=== PATIENT | female | born 1960 | race Caucasian/White ===

== ENCOUNTER 2022-03-02 16:02 | Inpatient (IN) | payer SELFPAY ==
[2022-03-02 17:14] LABS: #Lymphocytes 0.8 thou/uL (1.20-3.40); #Monocytes 0.4 thou/uL (0.11-0.59); #Neutrophils 5.2 thou/uL (1.40-6.50); %Basophils 0.2 % (0.0-1.0); %Eosinophils 0.5 % (0.0-10.0); %Lymphocytes 12.1 % (21.0-51.0); %Neutrophils 81.2 % (42.0-75.0); Hemoglobin 11.5 g/dL (12.0-16.0); Mean Corpuscular HGB CONC 33.5 g/dL (32.0-36.0); Mean Corpuscular Hemoglobin 33.4 pg (27.0-31.0); Mean Corpuscular Volume 99.5 fl (78.0-98.0); Mean Platelet Volume 8.5 fL (7.4-10.4); Platelet Count 120 10x3/uL (130-400); Red Blood Cell (RBC) Count 3.44 mill/uL (4.20-5.40); White Blood Cell (WBC) Count 6.5 10x3/uL (4.8-10.8)
[2022-03-02 17:28] LABS: ALT (SGPT) 27 U/L (8-55); AST (SGOT) 84 U/L (5-34); Albumin 3.7 g/dL (3.5-5.0); Alkaline Phosphatase 129 U/L (40-110); Anion Gap 15 mmol/L (10-20); BUN (Urea Nitrogen) 22 mg/dL (9.8-20.1); Bilirubin, Total 0.9 mg/dL (0.2-1.2); Calc. Creatinine Clearance 0 mL/min (70-130); Calcium 10.1 mg/dL (7.8-10.44); Carbon Dioxide 24 mmol/L (22-29); Chloride 98 mmol/L (98-107); Estimated GFR 97; Globulin 3.3 g/dL (2.4-3.5); Glucose 107 mg/dL (70-105); Potassium 2.7 mmol/L (3.5-5.1); Sodium 134 mmol/L (136-145)
[2022-03-02] MEDS ORDERED: cefTRIAXone\\ROCEPHIN 2 GM VIAL ONE (18:24)
[2022-03-02] MEDS ORDERED: Potassium Chloride 20 MEQ TAB ONE (18:25)
[2022-03-02] MEDS ORDERED: Aspirin Chewable 81 MG TAB ONE (18:59)
[2022-03-02] MEDS ORDERED: Potassium Chloride 40 MEQ in Sodium Chloride 0.9% 250 ML 250 ML IVPB SCH (19:15)
[2022-03-02 19:18] LABS: Magnesium 1.3 mg/dL (1.6-2.6)
[2022-03-02] MEDS ORDERED: Azithromycin 500 MG VIAL ONE (19:23)
[2022-03-02 19:54] LABS: Bacteria/HPF 4+ HPF (None Seen); Bilirubin Negative (Negative); Blood, Urine 2+ (Negative); Clarity Clear (Clear); Glucose, Urine (Dipstick) Normal (Negative); Ketone, Urine Negative (Negative); Leukocyte 500 Leu/uL (Negative); Nitrite Negative (Negative); Protein, Urine (Dipstick) Negative (Neg-Trace); RBC/HPF 0-3 HPF (0-3); Specific Gravity, Urine 1.007 (1.002-1.036); Squamous Epithelial 0-3 HPF (0-3); Urobilinogen Normal mg/dL (Less than 2); WBC/HPF 21-50 HPF (0-3); pH, Urine 6.5 (5.0-9.0)
[2022-03-02] MEDS ORDERED: Magnesium 2 GM/50 ML(in water) 2 GM in Premix Bag 1 BAG IVPB SCH (20:00)
[2022-03-02 22:08] LABS: Cardiac Risk 4.9 (Less than 4.5)
[2022-03-02 23:50] VITALS: BMI 19.9
[2022-03-03] MEDS: Atorvastatin Calcium 40 MG TAB PO SCH ×2 (00:19→20:23)
[2022-03-03] MEDS: ALPRAZolam 0.25 MG TAB PO PRN ×2 (00:19→09:08)
[2022-03-03] MEDS: Dextrose 5 %-0.45 % NaCl 1,000 ML IV SCH ×2 (00:24→09:09)
[2022-03-03] MEDS: traMADol HCl 50 MG TAB PO PRN (01:28)
[2022-03-03 02:48] LABS: CKMB 2.4 ng/mL (0-6.6)
[2022-03-03 05:37] LABS: Anion Gap 13 mmol/L (10-20); BUN (Urea Nitrogen) 16 mg/dL (9.8-20.1); Calc. Creatinine Clearance 77 mL/min (70-130); Carbon Dioxide 22 mmol/L (22-29); Chloride 103 mmol/L (98-107); Estimated GFR 102; Glucose 92 mg/dL (70-105); Sodium 135 mmol/L (136-145)
[2022-03-03 05:38] LABS: #Eosinphils 0.1 thou/uL (0.0-0.7); #Lymphocytes 0.9 thou/uL (1.20-3.40); #Monocytes 0.5 thou/uL (0.11-0.59); #Neutrophils 3.7 thou/uL (1.40-6.50); %Basophils 0.2 % (0.0-1.0); %Eosinophils 1.4 % (0.0-10.0); %Lymphocytes 18.1 % (21.0-51.0); %Monocytes 9.7 % (0.0-10.0); %Neutrophils 70.7 % (42.0-75.0); Hemoglobin 9.8 g/dL (12.0-16.0); Mean Corpuscular HGB CONC 33.1 g/dL (32.0-36.0); Mean Corpuscular Hemoglobin 33.3 pg (27.0-31.0); Mean Platelet Volume 8.3 fL (7.4-10.4); Platelet Count 105 10x3/uL (130-400); Red Blood Cell (RBC) Count 2.95 mill/uL (4.20-5.40); White Blood Cell (WBC) Count 5.2 10x3/uL (4.8-10.8)
[2022-03-03] MEDS ORDERED: FLU VACC QS2022-23(6MOS UP)/PF 60 MCG/0.5 ML SYRINGE IM ONE (09:00)
[2022-03-03] MEDS: Aspirin 81 mg Enteric Coated Tablet PO SCH (09:08)
[2022-03-03] MEDS: Sertraline 100 MG TAB PO SCH (09:08)
[2022-03-03] MEDS: Enoxaparin Sodium 40 MG/0.4 ML SYRINGE SC SCH (09:08)
[2022-03-03] MEDS ORDERED: Ondansetron ODT 4 MG TAB PO PRN (09:31)
[2022-03-03] MEDS ORDERED: Electrolyte Replacement Protocol 1 EACH FS SCH (09:45)
[2022-03-03] MEDS ORDERED: Iopamidol-370 76% 500 ML 1 ML ONE (10:38)
[2022-03-03] MEDS ORDERED: Folic Acid 1 MG TAB PO SCH (11:30)
[2022-03-03] MEDS ORDERED: Electrolyte Replacement Protocol FS PRN (11:30)
[2022-03-03] MEDS ORDERED: Potassium Chloride 20 MEQ TAB PO SCH (11:30)
[2022-03-03] MEDS ORDERED: Multivit, Therapeutic 1 TAB PO SCH (11:30)
[2022-03-03] MEDS ORDERED: Lorazepam 1 MG TAB PO PRN (11:31)
[2022-03-03] MEDS ORDERED: Lorazepam 2 MG/ML VIAL IM PRN (11:31)
[2022-03-03] MEDS ORDERED: Magnesium 2 GM/50 ML(in water) 2 GM in Premix Bag 1 BAG IVPB SCH ×2 (11:45→14:00)
[2022-03-03] MEDS: Thiamine HCl 200 MG/2 ML VIAL SLOW IVP SCH (12:31)
[2022-03-03] MEDS: Lorazepam 1 MG TAB PO SCH ×2 (12:31→18:26)
[2022-03-03] MEDS: PHOS-NAK 1 PKT PACK PO SCH ×3 (15:16→20:23)
[2022-03-03] MEDS: Acetaminophen 325 MG TAB PO PRN (15:19)
[2022-03-03] MEDS ORDERED: cefTRIAXone\\ROCEPHIN 1 GM in Sodium Chloride 0.9% 100 ML IVPB SCH (18:00)
[2022-03-03] MEDS: Potassium Chloride 20 MEQ TAB PO SCH (18:26)
[2022-03-03] MEDS: guaiFENesin/DM ER PO SCH (20:23)
[2022-03-04] MEDS: PHOS-NAK 1 PKT PACK PO SCH (00:38)
[2022-03-04] MEDS: Dextrose 5 %-0.45 % NaCl 1,000 ML IV SCH ×2 (00:39→21:59)
[2022-03-04] MEDS: Lorazepam 1 MG TAB PO SCH ×5 (00:39→23:32)
[2022-03-04 05:27] LABS: #Eosinphils 0.1 thou/uL (0.0-0.7); #Lymphocytes 0.9 thou/uL (1.20-3.40); #Monocytes 0.6 thou/uL (0.11-0.59); #Neutrophils 2.9 thou/uL (1.40-6.50); %Basophils 0.6 % (0.0-1.0); %Eosinophils 1.6 % (0.0-10.0); %Lymphocytes 19.2 % (21.0-51.0); %Monocytes 12.5 % (0.0-10.0); %Neutrophils 66.1 % (42.0-75.0); Hemoglobin 10.1 g/dL (12.0-16.0); Mean Corpuscular HGB CONC 33.4 g/dL (32.0-36.0); Mean Corpuscular Hemoglobin 33.4 pg (27.0-31.0); Mean Platelet Volume 8.6 fL (7.4-10.4); Platelet Count 109 10x3/uL (130-400); RBC Distribution Width 13.9 % (11.5-14.5); Red Blood Cell (RBC) Count 3.01 mill/uL (4.20-5.40); White Blood Cell (WBC) Count 4.4 10x3/uL (4.8-10.8)
[2022-03-04 05:38] LABS: ALT (SGPT) 22 U/L (8-55); AST (SGOT) 36 U/L (5-34); Albumin 3.2 g/dL (3.5-5.0); Alkaline Phosphatase 117 U/L (40-110); Anion Gap 13 mmol/L (10-20); BUN (Urea Nitrogen) 10 mg/dL (9.8-20.1); Bilirubin, Total 0.4 mg/dL (0.2-1.2); Calc. Creatinine Clearance 79 mL/min (70-130); Calcium 8.8 mg/dL (7.8-10.44); Carbon Dioxide 24 mmol/L (22-29); Chloride 104 mmol/L (98-107); Estimated GFR 103; Globulin 2.7 g/dL (2.4-3.5); Glucose 113 mg/dL (70-105); Magnesium 1.6 mg/dL (1.6-2.6); Phosphorus 2.1 mg/dL (2.3-4.7); Potassium 3.5 mmol/L (3.5-5.1); Protein, Total 5.9 g/dL (6.0-8.3); Sodium 137 mmol/L (136-145)
[2022-03-04] MEDS ORDERED: Magnesium 2 GM/50 ML(in water) 2 GM in Premix Bag 1 BAG IVPB SCH (08:00)
[2022-03-04] MEDS ORDERED: Potassium Chloride 20 MEQ TAB PO SCH (08:00)
[2022-03-04] MEDS: Enoxaparin Sodium 40 MG/0.4 ML SYRINGE SC SCH (10:25)
[2022-03-04] MEDS: Multivit, Therapeutic 1 TAB PO SCH (10:28)
[2022-03-04] MEDS: Aspirin 81 mg Enteric Coated Tablet PO SCH (10:28)
[2022-03-04] MEDS: Folic Acid 1 MG TAB PO SCH (10:28)
[2022-03-04] MEDS: guaiFENesin/DM ER PO SCH ×2 (10:28→21:14)
[2022-03-04] MEDS: Sertraline 100 MG TAB PO SCH (10:31)
[2022-03-04] MEDS ORDERED: Potassium Bicarbonate/Cit Ac 20 MEQ TAB PO SCH (11:00)
[2022-03-04] MEDS: Acetaminophen 325 MG TAB PO PRN (11:03)
[2022-03-04] MEDS: Potassium Chloride 20 MEQ TAB PO SCH (11:04)
[2022-03-04] MEDS ORDERED: Lorazepam 1 MG TAB PO PRN (11:31)
[2022-03-04] MEDS: Thiamine HCl 200 MG/2 ML VIAL SLOW IVP SCH (13:08)
[2022-03-04 15:49] LABS: Potassium 4.7 mmol/L (3.5-5.1)
[2022-03-04] MEDS: Potassium Bicarbonate/Cit Ac 20 MEQ TAB PO SCH (17:51)
[2022-03-04] MEDS: Atorvastatin Calcium 40 MG TAB PO SCH (21:14)
[2022-03-04] MEDS: traMADol HCl 50 MG TAB PO PRN (21:26)
[2022-03-05] MEDS: Dextrose 5 %-0.45 % NaCl 1,000 ML IV SCH (02:42)
[2022-03-05] MEDS: Lorazepam 1 MG TAB PO SCH (05:38)
[2022-03-05 06:14] LABS: Hemoglobin 9.4 g/dL (12.0-16.0); Platelet Count 152 10x3/uL (130-400)
[2022-03-05 06:36] LABS: ALT (SGPT) 16 U/L (8-55); AST (SGOT) 19 U/L (5-34); Albumin 3.2 g/dL (3.5-5.0); Alkaline Phosphatase 102 U/L (40-110); Anion Gap 12 mmol/L (10-20); BUN (Urea Nitrogen) 11 mg/dL (9.8-20.1); Bilirubin, Total 0.2 mg/dL (0.2-1.2); Calc. Creatinine Clearance 77 mL/min (70-130); Calcium 9.2 mg/dL (7.8-10.44); Carbon Dioxide 24 mmol/L (22-29); Chloride 102 mmol/L (98-107); Estimated GFR 102; Globulin 2.5 g/dL (2.4-3.5); Glucose 106 mg/dL (70-105); Magnesium 1.2 mg/dL (1.6-2.6); Potassium 4.1 mmol/L (3.5-5.1); Protein, Total 5.7 g/dL (6.0-8.3); Sodium 134 mmol/L (136-145)
[2022-03-05 07:11] LABS: Phosphorus 3.4 mg/dL (2.3-4.7)
[2022-03-05] MEDS ORDERED: Magnesium Sulfate In Water 4 GM in Premix Bag 1 BAG IVPB SCH (08:00)
[2022-03-05] MEDS: guaiFENesin/DM ER PO SCH ×2 (08:33→20:46)
[2022-03-05] MEDS: Enoxaparin Sodium 40 MG/0.4 ML SYRINGE SC SCH (08:33)
[2022-03-05] MEDS: Multivit, Therapeutic 1 TAB PO SCH (08:34)
[2022-03-05] MEDS: Potassium Bicarbonate/Cit Ac 20 MEQ TAB PO SCH ×2 (08:34→17:11)
[2022-03-05] MEDS: Folic Acid 1 MG TAB PO SCH (08:34)
[2022-03-05] MEDS: Aspirin 81 mg Enteric Coated Tablet PO SCH (08:34)
[2022-03-05] MEDS: Sertraline 100 MG TAB PO SCH (08:34)
[2022-03-05] MEDS ORDERED: Lorazepam 1 MG TAB PO PRN (11:31)
[2022-03-05] MEDS: Thiamine HCl 200 MG/2 ML VIAL SLOW IVP SCH (12:14)
[2022-03-05] MEDS: Lorazepam 0.5 MG TAB PO SCH ×3 (12:14→23:15)
[2022-03-05] MEDS: Atorvastatin Calcium 40 MG TAB PO SCH (20:45)
[2022-03-05] MEDS: traMADol HCl 50 MG TAB PO PRN (23:30)
[2022-03-06] MEDS: Acetaminophen 325 MG TAB PO PRN ×3 (02:10→23:59)
[2022-03-06] MEDS: ALPRAZolam 0.25 MG TAB PO PRN ×2 (02:10→15:08)
[2022-03-06] MEDS: Lorazepam 0.5 MG TAB PO SCH (06:00)
[2022-03-06 07:04] LABS: Magnesium 1.6 mg/dL (1.6-2.6)
[2022-03-06] MEDS ORDERED: Magnesium 2 GM/50 ML(in water) 2 GM in Premix Bag 1 BAG IVPB SCH (08:00)
[2022-03-06] MEDS: guaiFENesin/DM ER PO SCH ×2 (09:04→20:57)
[2022-03-06] MEDS: Thiamine 100 MG TAB PO SCH (09:05)
[2022-03-06] MEDS: Multivit, Therapeutic 1 TAB PO SCH (09:05)
[2022-03-06] MEDS: Aspirin 81 mg Enteric Coated Tablet PO SCH (09:05)
[2022-03-06] MEDS: Enoxaparin Sodium 40 MG/0.4 ML SYRINGE SC SCH (09:05)
[2022-03-06] MEDS: Sertraline 100 MG TAB PO SCH (09:05)
[2022-03-06] MEDS: Folic Acid 1 MG TAB PO SCH (09:05)
[2022-03-06] MEDS: Potassium Bicarbonate/Cit Ac 20 MEQ TAB PO SCH (09:25)
[2022-03-06] MEDS ORDERED: Fluconazole 100 MG TAB PO SCH (10:00)
[2022-03-06] MEDS ORDERED: Lorazepam 0.5 MG TAB PO PRN (11:31)
[2022-03-06 18:17] LABS: Anion Gap 16 mmol/L (10-20); BUN (Urea Nitrogen) 21 mg/dL (9.8-20.1); Calc. Creatinine Clearance 69 mL/min (70-130); Calcium 9.3 mg/dL (7.8-10.44); Carbon Dioxide 22 mmol/L (22-29); Chloride 96 mmol/L (98-107); Estimated GFR 100; Glucose 101 mg/dL (70-105); Sodium 129 mmol/L (136-145)
[2022-03-06] MEDS: traMADol HCl 50 MG TAB PO PRN (20:55)
[2022-03-06] MEDS: Atorvastatin Calcium 40 MG TAB PO SCH (20:57)
[2022-03-07 06:46] LABS: Anion Gap 15 mmol/L (10-20); BUN (Urea Nitrogen) 19 mg/dL (9.8-20.1); Calc. Creatinine Clearance 68 mL/min (70-130); Calcium 9.6 mg/dL (7.8-10.44); Carbon Dioxide 25 mmol/L (22-29); Chloride 99 mmol/L (98-107); Estimated GFR 99; Glucose 95 mg/dL (70-105); Magnesium 1.6 mg/dL (1.6-2.6); Potassium 4.6 mmol/L (3.5-5.1); Sodium 134 mmol/L (136-145)
[2022-03-07] MEDS ORDERED: Magnesium 2 GM/50 ML(in water) 2 GM in Premix Bag 1 BAG IVPB SCH (08:00)
[2022-03-07] MEDS: Enoxaparin Sodium 40 MG/0.4 ML SYRINGE SC SCH (10:18)
[2022-03-07] MEDS: guaiFENesin/DM ER PO SCH (10:18)
[2022-03-07] MEDS: Sertraline 100 MG TAB PO SCH (10:22)
[2022-03-07] MEDS: Aspirin 81 mg Enteric Coated Tablet PO SCH (10:22)
[2022-03-07] MEDS: Thiamine 100 MG TAB PO SCH (10:22)
[2022-03-07] MEDS: Folic Acid 1 MG TAB PO SCH (10:22)
[2022-03-07] MEDS: Acetaminophen 325 MG TAB PO PRN (10:22)
[2022-03-07] MEDS: Multivit, Therapeutic 1 TAB PO SCH (10:22)
[2022-03-07 11:41] VITALS: TEMP 97.9
[2022-03-07] MEDS: ALPRAZolam 0.25 MG TAB PO PRN (12:47)
[2022-03-07 12:54] VITALS: BP 97/68
== END 2022-03-07 14:45 | disposition home or self-care (01) | DRG 178 ==
LOC: ERS 16:02 → NEURO 19:24 → OBSVTOIN 03-03 09:41
PROVIDERS: ADMIT Student in an Organized Health Care Education/Training Program; ATTEND Family Medicine
DX: J15.6 Pneumonia due to other Gram-negative bacteria (principal); E44.0 Moderate protein-calorie malnutrition; Z68.1 Body mass index [BMI] 19.9 or less, adult; I10 Essential (primary) hypertension; F41.9 Anxiety disorder, unspecified; F32.A Depression, unspecified; Z20.822 Contact with and (suspected) exposure to COVID-19; F17.210 Nicotine dependence, cigarettes, uncomplicated; E87.6 Hypokalemia; E83.42 Hypomagnesemia; F10.10 Alcohol abuse, uncomplicated; R13.12 Dysphagia, oropharyngeal phase; E83.39 Other disorders of phosphorus metabolism; B37.31 Acute candidiasis of vulva and vagina; Z88.2 Allergy status to sulfonamides; Z79.899 Other long term (current) drug therapy
CPT/HCPCS: 36415; 70450; 70496; 70498; 70551; 71045; 80048; 80053; 80061; 81003; 81015; 82553; 83605; 83735; 84100; 84443; 84484; 85014; 85018; 85025; 85049; 87040; 93005; 93306; 94640; 94760; 96372; 96374; 96375; 96376; G0378; J0456; J0696; J1650; J1956; J3411; J3475; J3480; J7042; J7050; J7620; Q9967; U0003; U0005